=== PATIENT | male | born 1965 | race American Indian/Alaskan Native ===

== ENCOUNTER 2017-09-25 05:53 | Day surgery (SDC) | payer BC ==
[2017-09-23 13:28] VITALS: BMI 34.9
[2017-09-25] MEDS ORDERED: Bupivacaine HCl 0.25% PF (10 ml) Inj ONE ×3 (07:38→07:55)
[2017-09-25] MEDS ORDERED: ceFAZolin IV 2 gm in Dextrose 2 GM/50 ML BAG IVPB ONE (07:39)
[2017-09-25] MEDS ORDERED: Sodium Chloride 0.9% 20 ML IV ONE (07:39)
[2017-09-25] MEDS ORDERED: Lidocaine/Epinephrine 1% 1:100000 10 ML IJ ONE ×2 (07:39)
[2017-09-25] MEDS ORDERED: Propofol 10 mg/ml Inj (20 ML) ONE ×2 (07:43→09:26)
[2017-09-25] MEDS ORDERED: Midazolam 2 MG/2 ML VIAL ONE (07:43)
[2017-09-25] MEDS ORDERED: Neostigmine Methylsulfate 3mg/3ml Syringe IV ONE (09:10)
[2017-09-25] MEDS ORDERED: HYDROmorphone 0.5 mg/0.5 ml ISec IVP PRN (10:43)
--- NOTE | 2017-09-25 10:53 | PCM.SURG1 ---
Surgeon's Initial Post Op Note - Surgeon's Notes Surgeon: Dustin Mccann MD Dishroom Attendant: VERNELL Pope Type of Anesthesia: General Endo Pre-Operative Diagnosis: Umbilical hernia. Morbid obesity Operative Findings: Incarcerated Umbilical hernia containing omentum, 3x3 cm. Diastasis of recti 15 x5 cm. Morbid obesity Post-Operative Diagnosis: Incarcerated Umbilical hernia containing omentum, 3x3 cm. Diastasis of recti 15 x5 cm. Morbid obesity Operation Performed: Robotic Incarcerated Umbilical hernia with mesh. Robotic Diastasis of recti repair with mesh. Lap Bilateral TAP block placement Specimen/Specimens Removed: Umbilical hernial content and sac Estimated Blood Loss: EBL {In ML}: 10 Blood Products Given: N/A Drains Used: No Drains Post-Op Condition: Good Date of Surgery/Procedure: 09/25/17 Time of Surgery/Procedure: 10:54
[2017-09-25 12:29] VITALS: TEMP 98.2
[2017-09-25 12:46] VITALS: BP 142/86; PULSE 77; RESP 18; O2SAT 100
--- NOTE | 2017-09-27 01:34 | OP ---
PROCEDURE DATE: 09/25/2017. PREOPERATIVE DIAGNOSES: 1. Umbilical hernia. 2. Morbid obesity. 3. Possible diastasis of recti. POSTOPERATIVE DIAGNOSES: 1. Umbilical hernia approximately 3 x 3 cm size. 2. Diastasis of recti 15 x 5 cm size. 3. Morbid obesity. PROCEDURES DONE: 1. Robotic umbilical hernia repair with a mesh. 2. Robotic diastasis of recti repair with mesh. 3. Laparoscopic bilateral TAP block placement. SURGEON: Jey Mccann MD. MORTGAGE MANAGER: VERNELL Pope. TYPE OF ANESTHESIA: General endotracheal tube anesthesia. ESTIMATED BLOOD LOSS: Around 20 mL. DRAINS: None. PATHOLOGY: Umbilical hernia sac and content was sent for the pathology. COMPLICATIONS: None. INTRAOPERATIVE FINDINGS: 1. The patient had 3 x 3 cm umbilical hernia containing incarcerated omentum. 2. The patient also had diastasis of recti of approximately 5 cm wide and 15 cm long. DESCRIPTION OF PROCEDURE: On intraoperative steps, this 52-year-old morbidly obese male who was diagnosed with umbilical hernia and the patient was consented for the umbilical hernia repair with the mesh. The patient was brought to the OR placed supine on the operating table. After induction of the anesthesia, abdomen was prepped and draped in the usual sterile fashion. The left upper quadrant incision was made after incising the skin and the subcutaneous tissue. By using the Visiport technique peritoneal cavity was entered and pneumo was created. Another two 8 mm port was placed in the left lower quadrant as well as the left flank and 5 mm port was changed to 8 mm port, robot was brought in. Camera arm as well as arm 1 and arm 2 was docked. Incarcerated omentum was reduced back with a hook and grasper and umbilical hernial content and sac was reduced back into the peritoneal cavity and now the defect was examined. The patient had approximately 3 x 3 cm defect and the patient also had large diastasis of approximately 5 cm width and 15 cm long and decision was made to repair the umbilical hernia as well as diastasis of recti to mobilize the rectus muscle medially and #1 Prolene V-Loc suture was used and first umbilical hernial defect was closed in two layers and diastasis of the recti defect was marked with the hook superiorly, inferiorly, laterally as well as medially and #1 Prolene V-Loc suture was used to approximate the rectus muscles from the right and left side in the midline after plicating the fascia. After that a second layer of the Prolene V-Loc suture was used to approximate the muscles as well as to plicate the fascia. After complete mobilization of the rectus muscles medially, and umbilical hernia repair, the large 20 x 12 cm mesh was introduced and the mesh was properly implanted with sutures and tackers. After proper implantation of the mesh medially, laterally, superiorly, and inferiorly, the bilateral TAP block was given right side and left side 15:15 mL of Marcaine and total of 30 mL of Marcaine was given on each side and after proper TAP block, all the ports were taken out under vision. Before doing the TAP block all the robotic instrument was taken out, robot undocked and after that all the ports was closed in two layers; subcu with 2-0 Vicryl, skin with 4-0 Monocryl, and dry sterile dressing was applied. The patient tolerated the procedure well. Count of instrument and gauze was correct. There was no apparent complication. The patient was extubated in the OR and sent to the Postanesthesia Care Unit in stable condition. Jey Mccann MD MTDD
== END 2017-09-25 13:54 | disposition home or self-care (01) ==
LOC: C.SDS 05:53
PROVIDERS: ATTEND Surgery Surgical Critical Care
DX: K42.0 Umbilical hernia with obstruction, without gangrene (principal); E66.01 Morbid (severe) obesity due to excess calories
CPT/HCPCS: 22999; 49653; 88302; C1781; J0690; J1170; J2250; J2405; J2704; J2710; J3010